=== PATIENT | male | born 1980 | race Caucasian/White ===

== ENCOUNTER 2017-01-07 18:28 | Emergency (ER) | payer BC ==
[~2017-01-07] VITALS: Ht 185.4 cm; Wt 73.5 kg
[~2017-01-07 18:28] MED LIST: LAMO200T2 PO; MIRT15TA PO; NO REPORTED MEDS
[2017-01-07 18:32] VITALS: BP 113/86
--- NOTE | 2017-01-07 18:40 | NUR ---
PT BIB MOM FOR ADVERSE REACTION FROM TAKING [facility] MED. PT REPORTS FEELING INCREASE ANXIETY, JUMPY, "PANICKY", "WANTS TO ALWAYS RUN AROUND". DENIES SI/HI. AAOX3. COOPERATIVE. VSS. SEEN BY FOR EVAL. SAFETY AND COMFORT MEASURES PROVIDED. WILL MONITOR.
[2017-01-07] MEDS ORDERED: diphenhydrAMINE HCL 50 MG/ML VIAL ONE (18:50)
[2017-01-07] MEDS ORDERED: BENZTROPINE MESYLATE (1 MG) 1 MG TABLET ONE (18:51)
[2017-01-07] MEDS ORDERED: BENZTROPINE MESYLATE (1 MG) 1 MG TABLET PO ONE (19:00)
[2017-01-07] MEDS ORDERED: diphenhydrAMINE HCL 50 MG/ML VIAL IM ONE (19:00)
--- NOTE | 2017-01-07 19:04 | NUR ---
PT MEDICATED ORDERED.
--- NOTE | 2017-01-07 19:06 | NUR ---
RECEIVED REPORT FROM BRIANNA ELIZALDE FOR C.O.C
== END 2017-01-07 20:08 | disposition home or self-care (01) ==
LOC: ER 18:33
DX: G25.71 Drug induced akathisia (principal); G24.02 Drug induced acute dystonia; F41.9 Anxiety disorder, unspecified; F42.9 Obsessive-compulsive disorder, unspecified; F25.9 Schizoaffective disorder, unspecified; F31.9 Bipolar disorder, unspecified
CPT/HCPCS: 96372; 99283; A4606; J1200; Z7610

== ENCOUNTER 2020-09-22 16:37 | Emergency (ER) | payer BC ==
[~2020-09-22] VITALS: Ht 182.9 cm; Wt 72.6 kg
[~2020-09-22 16:37] MED LIST changes: +MIRT-121 PO; -MIRT15TA PO
[2020-09-22] MEDS ORDERED: PANTOPRAZOLE 40 MG VIAL ONE (17:12)
[2020-09-22] MEDS ORDERED: ONDANSETRON HCL/PF 4 MG/2 ML VIAL ONE (17:13)
[2020-09-22] MEDS ORDERED: PANTOPRAZOLE 40 MG VIAL IV ONE (17:30)
[2020-09-22] MEDS ORDERED: IV NS 0.9% 1,000 ML BAG IV ONE (17:30)
[2020-09-22] MEDS ORDERED: ONDANSETRON HCL/PF 4 MG/2 ML VIAL IVP ONE (17:30)
[2020-09-22 17:33] LABS: BASOPHILS % (AUTO) 0.2 % (0.0-2.0); EOSINOPHILS % (AUTO) 0.7 % (0.0-6.0); HEMATOCRIT 47 % (39-51); HEMOGLOBIN 16.3 g/dL (13.5-17.5); LYMPHOCYTES # (AUTO) 3.2 /CMM (0.8-4.8); LYMPHOCYTES % (AUTO) 46.6 % (20.0-44.0); MEAN CORPUSCULAR HGB CONC 35 g/dl (31.0-36.0); MEAN CORPUSCULAR VOLUME 90 fL (80-96); MONOCYTES # (AUTO) 0.9 /CMM (0.1-1.30); MONOCYTES % (AUTO) 13.4 % (2.0-12.0); NEUTROPHILS # (AUTO) 2.7 /CMM (1.8-8.9); NEUTROPHILS % (AUTO) 39.1 % (43.0-81.0); PLATELET COUNT (AUTO) 309 /CMM (150-450); RED BLOOD CELL COUNT(AUTO) 5.14 MIL/uL (4.5-6.0); WHITE BLOOD COUNT (AUTO) 6.9 K/uL (4.3-11.0)
[2020-09-22 17:45] LABS: ALCOHOL, BLOOD < 3 mg/dL (0-0)
[2020-09-22 17:50] LABS: CREATINE KINASE, TOTAL 208 U/L (39-308)
[2020-09-22 17:51] LABS: ALBUMIN 4.9 g/dL (3.4-5.0); BILIRUBIN,DIRECT 0.2 mg/dL (0.0-0.2); BILIRUBIN,TOTAL 1.4 mg/dL (0.2-1.0); CALCIUM, SERUM 9.8 mg/dL (8.5-10.1); POTASSIUM 3.8 mmol/L (3.5-5.1); TOTAL PROTEIN, SERUM 8.3 g/dL (6.4-8.2)
--- NOTE | 2020-09-22 19:05 | NUR ---
rec'd report from BRIANNA Arevalo for sandy
[2020-09-22 19:22] LABS: BILIRUBIN,URINE Negative (NEGATIVE); COLOR,URINE YELLOW (YELLOW); LEUKOCYTE ESTERASE ,URINE Negative (NEGATIVE); NITRITE, URINE Negative (NEGATIVE); PROTEIN,URINE Negative (NEGATIVE); UGLUCOSE Negative (NEGATIVE); UROBILINOGEN,URINE 0.2 EU/dL (0.2)
[2020-09-22 19:41] LABS: BACTERIA,URINE Rare /HPF (None Seen); SQUAMOUS EPITHELIAL CELL,UR Few /HPF (None Seen); WBC,URINE NONE SEEN /HPF (0-3)
[2020-09-22] MEDS ORDERED: HYDR50TA61 PO ×2 (19:47→19:48)
[2020-09-22] MEDS ORDERED: LORAZEPAM 1 MG TABLET PO ONE (20:00)
[2020-09-22] MEDS ORDERED: LORAZEPAM 1 MG TABLET ONE (20:09)
--- NOTE | 2020-09-22 20:15 | NUR ---
Patient discharged to home in stable condition. Written and verbal after care instructions given. Patient verbalizes understanding of instruction. IV removed. Catheter intact and site benign. Pressure and 4x4 applied to site. No bleeding noted. Pt ambulatory with a steady gait
[2020-09-22 20:48] VITALS: BP 144/73
== END 2020-09-22 20:15 | disposition home or self-care (01) ==
LOC: ER 16:42
DX: F15.10 Other stimulant abuse, uncomplicated (principal); F41.9 Anxiety disorder, unspecified; E86.0 Dehydration; F25.9 Schizoaffective disorder, unspecified; F42.9 Obsessive-compulsive disorder, unspecified; Z79.899 Other long term (current) drug therapy
CPT/HCPCS: 36415; 80048; 80076; 80307; 80320; 81001; 82550; 83690; 85025; 93005; 96361; 96374; 96375; 99285; C9113; J2405; G0480

== ENCOUNTER 2020-10-05 18:30 | Emergency (ER) | payer BC ==
[~2020-10-05] VITALS: Ht 182.9 cm; Wt 72.6 kg
[~2020-10-05 18:30] MED LIST changes: +HYDR50TA61 PO
[2020-10-05 19:07] VITALS: BP 105/60
--- NOTE | 2020-10-05 19:07 | NUR ---
FROM HOME, C/O INCREASE ANXIETY FROM TAKING MEDICINE HE THOUGHT WAS METH X4 DAYS AGO. TO ER BED 9, HOOKED TO MONITOR, CHANGED TO [facility]OSP [facility], AWAITING MD THOMAS. KEPT COMFORTABLE
--- NOTE | 2020-10-05 19:14 | NUR ---
JANNY GEORGE AT BEDSIDE
--- NOTE | 2020-10-05 19:17 | NUR ---
REPORT GIVEN TO SUHAIL REED FOR [facility]
[2020-10-05] MEDS ORDERED: LORAZEPAM INJ 2 MG/ML VIAL ONE (19:24)
[2020-10-05] MEDS ORDERED: LORAZEPAM INJ 2 MG/ML VIAL IV ONE (19:30)
[2020-10-05] MEDS ORDERED: IV NS 0.9% 1,000 ML BAG IV ONE (19:30)
[2020-10-05 19:31] LABS: BASOPHILS % (AUTO) 0.4 % (0.0-2.0); EOSINOPHILS % (AUTO) 1.3 % (0.0-6.0); HEMATOCRIT 42 % (39-51); HEMOGLOBIN 14.6 g/dL (13.5-17.5); LYMPHOCYTES # (AUTO) 3.1 /CMM (0.8-4.8); LYMPHOCYTES % (AUTO) 51.2 % (20.0-44.0); MEAN CORPUSCULAR HGB CONC 35 g/dl (31.0-36.0); MEAN CORPUSCULAR VOLUME 92 fL (80-96); MONOCYTES # (AUTO) 0.8 /CMM (0.1-1.30); MONOCYTES % (AUTO) 12.9 % (2.0-12.0); NEUTROPHILS # (AUTO) 2.1 /CMM (1.8-8.9); NEUTROPHILS % (AUTO) 34.2 % (43.0-81.0); PLATELET COUNT (AUTO) 305 /CMM (150-450); RED BLOOD CELL COUNT(AUTO) 4.58 MIL/uL (4.5-6.0); WHITE BLOOD COUNT (AUTO) 6.1 K/uL (4.3-11.0)
[2020-10-05 19:51] LABS: ALBUMIN 4.2 g/dL (3.4-5.0); BILIRUBIN,DIRECT 0.1 mg/dL (0.0-0.2); BILIRUBIN,TOTAL 0.8 mg/dL (0.2-1.0); CALCIUM, SERUM 8.8 mg/dL (8.5-10.1); CREATININE 0.9 mg/dL (0.6-1.3); POTASSIUM 4.3 mmol/L (3.5-5.1); TOTAL PROTEIN, SERUM 7.4 g/dL (6.4-8.2)
[2020-10-05 20:32] LABS: ACETAMINOPHEN < 2 ug/ml (10-30); ALCOHOL, BLOOD 93 mg/dL (0-0)
[2020-10-05 20:46] LABS: BILIRUBIN,URINE NEGATIVE (NEGATIVE); COLOR,URINE YELLOW (YELLOW); LEUKOCYTE ESTERASE ,URINE NEGATIVE (NEGATIVE); NITRITE, URINE NEGATIVE (NEGATIVE); PROTEIN,URINE NEGATIVE (NEGATIVE); UGLUCOSE NEGATIVE (NEGATIVE); UROBILINOGEN,URINE 0.2 EU/dL (0.2)
--- NOTE | 2020-10-05 20:48 | NUR ---
TRENA JACKSON COLLECTED AND SENT TO THE LAB.
[2020-10-05 20:51] LABS: BACTERIA,URINE Rare /HPF (None Seen); RBC,URINE 0-2 /HPF (0-2); SQUAMOUS EPITHELIAL CELL,UR Rare /HPF (None Seen); WBC,URINE 0-2 /HPF (0-3)
--- NOTE | 2020-10-05 21:56 | NUR ---
FACESHEET AND CLINICAL FAXED TO [facility]
--- NOTE | 2020-10-05 23:40 | NUR ---
PATIENT AMBULATED TO THE RESTROOM WITH A STEADY GAIT.
--- NOTE | 2020-10-06 02:01 | NUR ---
REC'D A CALL FROM EAN AT [facility] INTAKE. PT GOT ACCEPTED AT [facility] [address] NEWBERRY. NUMBER FOR REPORT: [phone]
--- NOTE | 2020-10-06 02:25 | NUR ---
[facility] ETA: 30MIN
--- NOTE | 2020-10-06 02:32 | NUR ---
REPORT GIVEN TO THOR REED FOR [facility].
--- NOTE | 2020-10-06 03:02 | NUR ---
REPORT GIVEN TO TRANSPORT TEAM FOR [facility]. AND TRASNFERRING RESPONSIBILITIES.
== END 2020-10-06 03:02 ==
LOC: ER 18:30
DX: F15.280 Other stimulant dependence with stimulant-induced anxiety disorder (principal); F10.229 Alcohol dependence with intoxication, unspecified; Y90.4 Blood alcohol level of 80-99 mg/100 ml; R45.851 Suicidal ideations; Z20.822 Contact with and (suspected) exposure to COVID-19; F25.0 Schizoaffective disorder, bipolar type; F42.9 Obsessive-compulsive disorder, unspecified; F41.9 Anxiety disorder, unspecified; Z79.899 Other long term (current) drug therapy
CPT/HCPCS: 36415; 80048; 80076; 80299; 80307; 80320; 81001; 85025; 87426; 96361; 96374; 99285; C9803; J2060; J7030; G0480

== ENCOUNTER 2020-10-17 23:09 | Emergency (ER) | payer BC ==
[~2020-10-17] VITALS: Ht 182.9 cm; Wt 68.0 kg
[2020-10-17 23:19] VITALS: BP 148/85
--- NOTE | 2020-10-17 23:34 | NUR ---
SEEN AND ASSESSED BY
[2020-10-17] MEDS ORDERED: ONDANSETRON 4 MG TAB.RAPDIS ONE (23:39)
[2020-10-17] MEDS ORDERED: LORAZEPAM 1 MG TABLET ONE (23:39)
[2020-10-18] MEDS ORDERED: LORAZEPAM 1 MG TABLET PO ONE
[2020-10-18] MEDS ORDERED: ONDANSETRON 4 MG TAB.RAPDIS SL ONE
--- NOTE | 2020-10-18 00:06 | NUR ---
Patient discharged to home in stable condition. Written and verbal after care instructions given. Patient verbalizes understanding of instruction.
== END 2020-10-18 00:09 | disposition home or self-care (01) ==
LOC: ER 23:10
DX: F15.10 Other stimulant abuse, uncomplicated (principal); E86.0 Dehydration; F31.9 Bipolar disorder, unspecified; F25.9 Schizoaffective disorder, unspecified; F42.9 Obsessive-compulsive disorder, unspecified; F10.10 Alcohol abuse, uncomplicated; Y90.9 Presence of alcohol in blood, level not specified; Z60.2 Problems related to living alone; Z79.899 Other long term (current) drug therapy
CPT/HCPCS: 99283; Q0162